=== PATIENT | female | born 1955 | race Two or more races ===

== ENCOUNTER 2023-10-17 08:42 | Emergency (ER) | payer OTHER ==
[~2023-10-17] VITALS: Ht 152.4 cm; Wt 49.4 kg
[2023-10-17] MEDS ORDERED: ROSUVASTATIN CA10 MG PO (09:00)
[2023-10-17] MEDS ORDERED: LEXAPRO5 MG (09:00)
[2023-10-17] MEDS ORDERED: ATACAND32 MG PO (09:04)
[2023-10-17] MEDS ORDERED: ASPRUZYO SPRIN500 MG PO (09:05)
[2023-10-17 09:52] LABS: HEMATOCRIT 33.2 % (36.0-45.00); HEMOGLOBIN 11.3 g/dL (12.0-15.00); MEAN CELL VOLUME 90.7 fL (80.00-100.00); MEAN CORPUSCULAR HEMOGLOBIN 30.9 pg (27.00-32.0); MEAN CORPUSCULAR HGB CONC 34.1 g/dl (32.0-36.0); PLATELET COUNT 237 K/uL (150-450); RED BLOOD COUNT 3.67 M/uL (4.00-6.00); RED CELL DISTRIBUTION WIDTH 13.1 % (11.5-14.5)
[2023-10-17 10:32] LABS: CREATININE SERUM 1.49 mg/dL (0.55-1.02); GFR 34.8; POTASSIUM 4.76 mEq/L (3.5-5.1)
[2023-10-17] MEDS ORDERED: FAMOTIDINE/PF 20 MG/2 ML VIAL IV PUSH ONE (11:30)
[2023-10-17] MEDS ORDERED: DEXAMETHASONE SODIUM PHOSPHATE 4 MG/ML VIAL IV ONE (11:45)
[2023-10-17] MEDS ORDERED: ONDANSETRON HCL 2 MG/ML VIAL IV ONE (11:45)
== END 2023-10-17 16:27 | disposition home or self-care (01) ==
LOC: ER 08:42
PROVIDERS: General Practice
DX: S00.93XA Contusion of unspecified part of head, initial encounter (principal); W18.30XA Fall on same level, unspecified, initial encounter; Y93.89 Activity, other specified; Y92.89 Other specified places as the place of occurrence of the external cause; Y99.9 Unspecified external cause status; R42 Dizziness and giddiness; I10 Essential (primary) hypertension
CPT/HCPCS: 36415; 70450; 93005; 96365; 99284; J1100; J2405; J3490

== ENCOUNTER 2024-04-03 03:48 | Emergency (ER) | payer OTHER ==
[~2024-04-03] VITALS: Ht 152.4 cm; Wt 49.4 kg
[~2024-04-03 03:48] MED LIST: ASPRUZYO SPRIN500 MG PO; ATACAND32 MG PO; LEXAPRO5 MG; ROSUVASTATIN CA10 MG PO
[2024-04-03] MEDS ORDERED: CHILDREN'S ASPI81 MG PO (03:57)
[2024-04-03] MEDS ORDERED: INDERAL LA80 MG PO (03:57)
[2024-04-03] MEDS ORDERED: ONDANSETRON HCL 2 MG/ML VIAL IV STA (04:11)
[2024-04-03] MEDS ORDERED: ONDANSETRON HCL 2 MG/ML VIAL ONE (04:14)
[2024-04-03] MEDS ORDERED: 0.9 % SODIUM CHLORIDE 500 ML IV ONE (04:15)
[2024-04-03 05:12] LABS: BILIRUBIN TOTAL 0.37 mg/dL (0.3-1.2); CALCIUM 9.2 mg/dL (8.5-10.1); CREATININE SERUM 1.44 mg/dL (0.55-1.02); GFR 36.2; GLOBULINA 3.2 G/DL (2.4-3.5); POTASSIUM 4.55 mEq/L (3.5-5.1); TOTAL PROTEIN 7.2 gm/dL (6.4-8.2)
[2024-04-03 05:36] LABS: HEMATOCRIT 33.3 % (36.0-45.00); MEAN CORPUSCULAR HGB CONC 34.1 g/dl (32.0-36.0); PLATELET COUNT 236 K/uL (150-450); RED BLOOD COUNT 3.58 M/uL (4.00-6.00); RED CELL DISTRIBUTION WIDTH 13.1 % (11.5-14.5)
[2024-04-03 05:38] LABS: HEMOGLOBIN 11.3 g/dL (12.0-15.00); MEAN CORPUSCULAR HEMOGLOBIN 31.5 pg (27.00-32.0)
== END 2024-04-03 06:49 ==
LOC: ER 03:49
PROVIDERS: General Practice
DX: I95.9 Hypotension, unspecified (principal); R11.10 Vomiting, unspecified; R42 Dizziness and giddiness; I10 Essential (primary) hypertension
CPT/HCPCS: 36415; 93005; 96365; 96366; 99282; J2405; J7042